=== PATIENT | female | born 1980 | race Caucasian/White ===

== ENCOUNTER 2025-05-19 06:19 | Day surgery (SDC) | payer BC ==
[2025-05-19] MEDS: Lactated Ringers 1,000 ML IV SCH (07:35)
[2025-05-19] MEDS ORDERED: Propofol 200 MG/20 ML SDV ONE (07:49)
== END 2025-05-19 09:46 | disposition home or self-care (01) ==
LOC: DL.ENDO 06:19
PROVIDERS: ATTEND Internal Medicine Gastroenterology
DX: Z12.11 Encounter for screening for malignant neoplasm of colon (principal)
CPT/HCPCS: 45378; J7120